=== PATIENT | male | born 1945 | race Caucasian/White ===

== ENCOUNTER 2023-01-08 13:02 | Emergency (ER) | payer OTHER, MEDICARE, SELFPAY ==
[2023-01-08 13:03] VITALS: BP 139/47; PULSE 75; RESP 18; TEMP 36.8; O2SAT 96; BMI 33.2
--- NOTE | 2023-01-08 13:15 | CT_ITS ---
STUDY: CT BRAIN WITHOUT CONTRAST REASON FOR EXAM: Male, 77 years old. Injury FALL. UPPER SCALP LAC RADIATION DOSAGE (If Supplied By Facility): CTDIvol = ( 44.99 ) mGy, DLP = ( 846.73 ) mGycm TECHNIQUE: Transaxial CT imaging of the brain was performed without administration of intravenous contrast material. Individualized dose optimization techniques were used for this CT. COMPARISON: None. FINDINGS: Small left scalp laceration with subcutaneous air and mild swelling over the apex of the skull/frontal bone. No visualized skull fracture or pneumocephalus or subdural hemorrhage or midline shift. Normal calvarium. There is mild cerebral atrophy with widening of the extra-axial spaces and ventricular dilatation. There are areas of decreased attenuation within the white matter tracts of the supratentorial brain, consistent with microvascular disease changes. Normal basal ganglia and thalami. Normal brainstem. Normal cerebellum. There is no intracranial hemorrhage. There are no findings of an acute ischemic infarction. Normal visualized paranasal sinuses. CT/Brain/Head without Contrast IMPRESSION: 1. Small left scalp laceration with subcutaneous air and mild swelling over the apex of the skull/frontal bone. No visualized skull fracture or pneumocephalus or subdural hemorrhage or midline shift 2. Chronic involutional changes of the brain. Electronically Signed: Gregorio Jacobs MD at 14:28 EST ,
[2023-01-08] MEDS: Lidocaine 1% (20 ml mdv) 20 ML Vial INFILT (13:18)
[2023-01-08] MEDS: Diphth,Pertuss(Acell),Tet Vac 0.5 ML Vial IM (13:22)
--- NOTE | 2023-01-08 13:37 | EX.ED.GENINJ ---
HPI History of Present Illness Chief Complaint: Laceration Informant: patient Narrative Narrative: 77-year-old male presenting to the emergency department chief complaint of head injury. Patient states he was walking towards the bathroom tripped over an electrical cord falling forward striking his head on brick/concrete that was around the sunken tub in the bathroom. No loss of consciousness. Unsure of last tetanus. He denies any back neck arm or leg symptoms. Not on blood thinners. Tetanus Immunization: Unknown PFSH PFSH Medical History Bone marrow depression Home Medications hydrocodone-acetaminophen 5-325mg 5mg-325mg 1 - 2 tab PO Q4H PRN PRN Pain ##20 11/17/14 [Rx Last Taken Unknown] Allergy/AdvReac Type Severity Reaction Status Date / Time meperidine HCl [From Demerol] Allergy Other Verified 01/08/23 13:08 Sulfa (Sulfonamide Allergy Rash Verified 01/08/23 13:08 Antibiotics) metformin AdvReac FATIGUE Verified 01/08/23 13:08 Social History Smoking Status: Former smoker ROS ROS ED Constitutional Constitutional ED: Denies chills or weight loss Eyes Eyes: Denies change in vision or diplopia ENT ENT ED: Denies ear pain, rhinorrhea or sore throat Cardiovascular Cardiovascular: Denies chest pain, orthopnea, palpitations or racing heartbeat Respiratory/Chest Respiratory/Chest: Denies cough, dyspnea or orthopnea Gastrointestinal Gastrointestinal: Denies abdominal pain, diarrhea, nausea or vomiting Genitourinary Genitourinary ED: Denies dysuria, hematuria or urinary frequency Musculoskeletal Musculoskeletal: Denies arthralgias or myalgias Integumentary Reports other Details: Scalp laceration ; Denies abscess or rash Neurologic Neurologic: Denies headache(s) or weakness Psychiatric Psychiatric: Denies anxiety, depression, suicidal ideation or suicidal thoughts Endocrine Endocrinology: Denies polydipsia, polyphagia or polyuria Allergic/Immunologic Allergic/Immunologic ED: Denies mouth swelling, tongue swelling or urticaria EXAM Physical Exam Const Vital Signs: 01/08/23 13:03 Temperature 98.3 F Temperature Source Temporal Pulse Rate 75 Respiratory Rate 18 Blood Pressure 139/47 H Blood Pressure Mean 77 Pulse Ox 96 Oxygen Delivery Method Room Air Positive well nourished and well developed General Appearance ED: well developed HEENT Reports normocephalic and moist mucous membranes HEENT Narrative: There is a 3 cm elongated W laceration to the left vertex of the scalp. No obvious bony depression. Mild venous oozing. Eyes PERRL and EOMs intact bilaterally Neck full ROM, no lymphadenopathy, supple and no JVD General: Negative for tenderness Resp normal respiratory effort and clear to auscultation bilaterally Cardio regular rate, regular rhythm and no murmurs GI normal to inspection, nondistended, normoactive bowel sounds and non-tender Palpation: soft Back/Spine no CVA tenderness and normal ROM Extremity normal to inspection General Extremety ED: Negative for edema General Extremity: Negative for edema Neuro oriented x3 and CN's II-XII intact bilaterally Sensorium / Orientation: alert Motor Exam: strength 5/5 throughout Psych mental status grossly normal Mood & Affect: Negative for depressed or tearful Skin no rashes or lesions noted and no wounds MDM MDM MDM Narrative Medical decision making narrative: Wound was locally anesthetized using 1% lidocaine. Washed with Shur-Clens and explored. No foreign bodies were noted. Wound was closed using 7 simple interrupted 4-0 Ethilon sutures. Good wound approximation. Patient tolerated procedure well. CT the brain was obtained. This was negative for fracture or for hemorrhage. Patient be discharged home. Good local wound care follow-up 7 days for suture removal Radiography Diagnostic Testing: Clinical Impression(s) from Imaging Studies Brain CT 01/08/23 13:15 IMPRESSION: 1. Small left scalp laceration with subcutaneous air and mild swelling over the apex of the skull/frontal bone. No visualized skull fracture or pneumocephalus or subdural hemorrhage or midline shift 2. Chronic involutional changes of the brain. Electronically Signed: Gregorio Jacobs MD at 14:28 EST , Discharge Plan Triage Chief Complaint: Laceration ED Provider: Bandar Israel Dx/Rx/DC Orders Clinical Impression: Head injury, Fall, Laceration of scalp Instructions: ED Laceration: All Closures Prescriptions: No Action hydrocodone-acetaminophen 1 TABLET tablet 1 - 2 tab PO Q4H PRN PRN (Reason: Pain) Qty: 20 0RF [facility] Provider] - 7 Days for suture removal Disposition Disposition: Home, Self Care
== END 2023-01-08 14:51 | disposition home or self-care (01) ==
PROVIDERS: Emergency Provider Emergency Medicine; Visit Provider Emergency Medicine
DX: S01.01XA Laceration without foreign body of scalp, initial encounter (principal); Z87.891 Personal history of nicotine dependence; S09.8XXA Other specified injuries of head, initial encounter; W01.198A Fall on same level from slipping, tripping and stumbling with subsequent striking against other object, initial encounter; Y93.01 Activity, walking, marching and hiking
CPT/HCPCS: 12002; 70450; 90471; 90715; 99284

== ENCOUNTER 2023-06-17 00:16 | Emergency (ER) | payer OTHER, SELFPAY ==
[2023-06-17] VITALS (15 sets, daily range): BP systolic 116–133; BP diastolic 50–67; PULSE 53–80; RESP 12–18; TEMP 36.3–37.1; O2SAT 96–100; BMI 34.0
[2023-06-17 01:17] LABS: Absolute Lymphocyte Count 1.08 X10^3/uL (0.83-4.51); Absolute Neutrophil Count 0.5 X10^3/uL (2.0-7.7); Basophil# 0.02 X10^3/uL; Basophil% 1.2 % (0-1); Eosinophil# 0.04 X10^3/uL; Eosinophils% 2.4 % (0-5); Hematocrit 13.2 % (40-54); Lymphocyte # 1.08 X10^3/ul (0.83-4.51); Lymphocyte % 64.7 % (19-41); Mean Corp Hgb Conc 33.3 g/dL (32-36); Mean Corpuscular Hgb 34.4 pg (27.0-32.0); Mean Corpuscular Volume 103.1 fL (80-94); Mean Platelet Vol. 12.9 fl (6.2-12.0); Monocyte# 0.03 X10^3/uL; Monocyte% 1.8 % (0-10); NRBC Flagged by Analyzer 0 % (0-5); Neutrophil # 0.47 X10^3/uL (2.7-7.7); Neutrophil % 28.1 % (47-70); POSITIVE COUNT YES; POSITIVE DIFFERENTIAL YES; POSITIVE MORPHOLOGY YES; Platelet Count 60 K/mm3 (150-450); Red Blood Count 1.28 M/mm3 (4.6-6.2); White Blood Count 1.7 K/mm3 (4.4-11.0)
[2023-06-17 01:26] LABS: Differential Indicated SCAN CRITERIA MET; Hemoglobin 4.4 g/dL (13.0-16.5)
--- NOTE | 2023-06-17 01:32 | EX.ED.DYSGE1 ---
HPI History of Present Illness Chief Complaint: Abn Labs Informant: patient and spouse/S.O. Narrative Narrative: Patient is a 78-year-old male with past medical history of hypertension hyperlipidemia and myelodysplastic syndrome. He states he has been receiving chemotherapy secondary to this. He reports he gets it Tuesday through Tuesday takes the weekend off and then who is Tuesday and Tuesday for total of 7 days. Then he waits approximately 28 days and then repeats the cycle. He states he has been having issues with his white blood cell count and his hemoglobin has been running low as well secondary to his treatments. He reports however he has never needed a transfusion. He states that there has been no hematuria or bleeding rectally and he denies any hematemesis. He states that he received a phone call reporting his hemoglobin was low and he needs to go to the hospital for transfusion and therefore presents at this time. Otherwise he states he feels at his baseline [facility] Medical History Allergic rhinitis Bone marrow depression Chronic anemia Former tobacco use HLD (hyperlipidemia) HTN (hypertension) MDS (myelodysplastic syndrome) Pancytopenia Home Medications acyclovir 400 mg tablet 400 mg PO BID 06/17/23 [History Last Taken Unknown] atorvastatin 40 mg tablet 40 mg PO QHS 06/17/23 [History Last Taken Unknown] azacitidine 100 mg solution for injection 125 mg subcut DAILY 06/17/23 [History Last Taken Unknown] benazepril 10 mg tablet 10 mg PO DAILY 06/17/23 [History Last Taken Unknown] cholecalciferol (vitamin D3) 25 mcg (1,000 unit) capsule 25 mcg PO DAILY 06/17/23 [History Last Taken Unknown] ciprofloxacin HCl 500 mg tablet (Cipro) 500 mg PO BID 06/17/23 [History Last Taken Unknown] cyanocobalamin (vitamin B-12) 1,000 mcg capsule 1,000 mcg PO DAILY 06/17/23 [History Last Taken Unknown] dexamethasone 4 mg tablet 8 mg PO DAILY 06/17/23 [History Last Taken Unknown] fluconazole 200 mg tablet 400 mg PO DAILY 06/17/23 [History Last Taken Unknown] fluticasone propionate 50 mcg/actuation nasal spray,suspension (Aller-Moose) 2 spray intranasal DAILY 06/17/23 [History Last Taken Unknown] hydrochlorothiazide 25 mg tablet 25 mg PO DAILY 06/17/23 [History Last Taken Unknown] hydroxyzine HCl 10 mg tablet 20 mg PO Q6H PRN itching 06/17/23 [History Last Taken Unknown] ketoconazole 2 % shampoo 1 applic topical Q14D 06/17/23 [History Last Taken Unknown] metoclopramide HCl 10 mg tablet (Reglan) 10 mg PO TID 06/17/23 [History Last Taken Unknown] tadalafil 20 mg tablet (Cialis) 20 mg PO DAILY PRN sexual activity 06/17/23 [History Last Taken Unknown] terazosin 5 mg capsule 5 mg PO QHS 06/17/23 [History Last Taken Unknown] thiamine HCl (vitamin B1) 100 mg tablet 100 mg PO DAILY 06/17/23 [History Last Taken Unknown] vitamin E 670 mg (1,000 unit) capsule 670 mg PO DAILY 06/17/23 [History Last Taken Unknown] vitamins A,C,K-hsny-ubpwch 2,148 mcg-113 mg-45 mg-17.4 mg tablet (Eye Multivitamin) 1 tab PO BID 06/17/23 [History Last Taken Unknown] Allergy/AdvReac Type Severity Reaction Status Date / Time meperidine HCl [From Demerol] Allergy Other Verified 06/17/23 00:17 Sulfa (Sulfonamide Allergy Rash Verified 06/17/23 00:17 Antibiotics) metformin AdvReac FATIGUE Verified 06/17/23 00:17 Family History (Updated 06/17/23 @ 01:[address] Hannah Garrett MD) Mother Breast cancer Other Heart disease Heart failure VTE (venous thromboembolism) Surgical History (Updated 06/17/23 @ 01:[address] Hannah Garrett MD) History of surgery on upper extremity History of total left knee replacement Social History (Updated 06/17/23 @ 01:[address] Hannah Garrett MD) household members: spouse Smoking Status: Former smoker alcohol intake: current alcohol intake frequency: holidays/special occasions only substance use type: does not use ROS ROS ED Constitutional Constitutional ED: Denies chills or fever(s) Eyes Eyes: Denies change in vision ENT ENT ED: Denies sore throat Cardiovascular Cardiovascular: Denies chest pain or palpitations Respiratory/Chest Respiratory/Chest: Denies cough or dyspnea Gastrointestinal Gastrointestinal: Denies abdominal pain, diarrhea, melena, nausea or vomiting Genitourinary Genitourinary ED: Denies dysuria or hematuria Musculoskeletal Musculoskeletal: Denies myalgias Integumentary Denies rash Neurologic Neurologic: Denies headache(s) or weakness Hematologic/Lymphatic Hematologic/Lymphatic: Denies easy bleeding or easy bruising EXAM Physical Exam Const Vital Signs: 06/17/23 00:17 06/17/23 00:17 06/17/23 02:17 Temperature 97.4 F L Temperature Source Temporal Pulse Rate 80 60 Respiratory Rate 17 16 Respiratory Effort Normal Non-Labored Respiratory Pattern Normal Blood Pressure 123/57 H 116/54 L Blood Pressure Mean 79 74 Blood Pressure Source Blood Pressure Position Blood Pressure Location Pulse Ox 98 96 Oxygen Delivery Method Room Air Room Air 06/17/23 04:01 06/17/23 04:00 06/17/23 04:16 Temperature 97.7 F L 97.7 F L Temperature Source Temporal Temporal Pulse Rate 66 64 60 Respiratory Rate 16 14 16 Respiratory Effort Respiratory Pattern Blood Pressure 117/57 L 117/57 L 126/54 H Blood Pressure Mean 77 77 78 Blood Pressure Source Monitor Monitor Blood Pressure Position Semi-Fowlers Supine Blood Pressure Location Right Arm Right Arm Pulse Ox 98 97 99 Oxygen Delivery Method Room Air Room Air Room Air 06/17/23 05:16 06/17/23 05:57 06/17/23 06:00 Temperature 97.7 F L 97.9 F Temperature Source Temporal Temporal Pulse Rate 53 L 57 L 55 L Respiratory Rate 18 16 16 Respiratory Effort Respiratory Pattern Blood Pressure 121/54 H 127/62 H 127/50 H Blood Pressure Mean 76 83 75 Blood Pressure Source Monitor Monitor Blood Pressure Position Semi-Fowlers Blood Pressure Location Right Arm Right Arm Pulse Ox 98 99 99 Oxygen Delivery Method Room Air Room Air Room Air Positive well nourished and well developed General Appearance ED: well developed and pallor HEENT Reports moist mucous membranes HEENT Narrative: No tongue or lip swelling no oral lesions no airway edema or compromise No active bleeding or dried blood noted in the posterior pharynx Eyes PERRL and EOMs intact bilaterally General Eye ED: Yes pale conjunctiva; Negative for scleral icterus Neck supple Resp normal respiratory effort and clear to auscultation bilaterally Cardio regular rate and regular rhythm GI normal to inspection, nondistended, normoactive bowel sounds, non-tender, non-distended and no masses GI Narrative: No voluntary guarding or rigidity or pulsatile mass Auscultation: normoactive bowel sounds Palpation: soft Extremity normal to inspection Neuro oriented x3, CN's II-XII intact bilaterally and no sensory deficits noted Sensorium / Orientation: alert Motor Exam: strength 5/5 throughout Psych mental status grossly normal Skin no rashes or lesions noted, No no wounds and No skin turgor normal Skin Narrative: Capillary refills less than 3 seconds General Skin Exam: pallor; Negative for jaundice MDM MDM MDM Narrative Medical decision making narrative: Patient presented to the ER with stable vitals. He denied any potential cause of acute blood loss anemia such as hematemesis hematochezia or hemoptysis. As he undergoes chemotherapy and has myelodysplastic syndrome chronic anemia is baseline for him. However he states it is never down to 5.2. There is possibly this was lab error so repeat blood work was obtained to check for this. Repeat labs do confirm anemia with hemoglobin of 4.4. As he is hemodynamically stable and he reports no areas of active bleeding I do not feel there is need for intervention other than blood transfusion. The patient was given 2 units of irradiated and leukoreduced blood because of his chemotherapy and MDS status. The case was discussed with his oncologist at [facility] Dr. Tiago Mcginnis. The c consultant agrees as patient is hemodynamically stable without reported areas of acute blood loss that after 2 units are given a CBC can be redrawn and as long as his hemoglobin has improved to near baseline and vitals remained stable he would feel safe with him being discharged and following up on an outpatient basis. This plan of care was discussed with the patient who is agreeable to it and therefore blood will be ordered and once tonight's are completed H&H will be rechecked. As long as it is approaching his baseline of 7, he will be discharged home History & Record Review Discussion w/independent historian: Patient and Significant other Lab Data Attestation: I reviewed the patient's lab results. Labs: Laboratory Results - last 24 hr 06/17/23 01:05 WBC 1.7 L RBC 1.28 L Hgb 4.4 L* Hct 13.2 L MCV 103.1 H MCH 34.4 H MCHC 33.3 RDW Std Deviation TNP RDW Coeff of Philip TNP Plt Count 60 L MPV 12.9 H Immature Gran % (Auto) 1.800 H Neut % (Auto) 28.1 L Lymph % (Auto) 64.7 H [place] % (Auto) 1.8 Eos % (Auto) 2.4 Baso % (Auto) 1.2 H Absolute Neuts (auto) 0.5 L Absolute Lymphs (auto) 1.08 Nucleated RBC % 0 Differential Comment SCANNED Diff Path Review May foll Atypical Lymphocytes 1+ Platelet Estimate MOD DEC Anisocytosis 3+ Microcytosis 2+ Blood Type A POSITIVE Antibody Screen NEGATIVE Crossmatch See Detail Discharge Plan Triage Chief Complaint: Abn Labs ED Provider: León Hussein Dx/Rx/DC Orders Clinical Impression: Acute anemia, Myelodysplastic syndrome, Thrombocytopenia, Hypertension Instructions: Anemia, Anemia During Cancer Prescriptions: No Action acyclovir 400 mg tablet 400 mg PO BID atorvastatin 40 mg tablet 40 mg PO QHS azacitidine 100 mg recon soln 125 mg subcut DAILY benazepril 10 mg tablet 10 mg PO DAILY ciprofloxacin HCl [Cipro] 500 mg tablet 500 mg PO BID cholecalciferol (vitamin D3) 25 mcg (1,000 unit) capsule 25 mcg PO DAILY cyanocobalamin (vitamin B-12) 1,000 mcg capsule 1,000 mcg PO DAILY dexamethasone 4 mg tablet 8 mg PO DAILY fluconazole 200 mg tablet 400 mg PO DAILY fluticasone propionate [Aller-Moose] 50 mcg/actuation spray,suspension 2 spray intranasal DAILY Rx Instructions: administer into each nostril hydrochlorothiazide 25 mg tablet 25 mg PO DAILY hydroxyzine HCl 10 mg tablet 20 mg PO Q6H PRN (Reason: itching) ketoconazole 2 % shampoo 1 applic topical Q14D metoclopramide HCl [Reglan] 10 mg tablet 10 mg PO TID Eye Multivitamin 2,148 mcg-113 mg-45 mg-17.4mg tablet 1 tab PO BID Rx Instructions: administer with AM and PM meals tadalafil [Cialis] 20 mg tablet 20 mg PO DAILY PRN (Reason: sexual activity) Rx Instructions: administer approximately 30min before sexual activity; do not use more than 1 dose per 24hrs terazosin 5 mg capsule 5 mg PO QHS thiamine HCl (vitamin B1) 100 mg tablet 100 mg PO DAILY vitamin E 670 mg (1,000 unit) capsule 670 mg PO DAILY [facility]errals[facility] [Primary Care Provider] - Activity Restrictions/Additional Instructions: Please 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
[2023-06-17 02:35] LABS: Atypical Lymphocyte 1+ %; Differential Comment SCANNED; Platelet Estimate MOD DEC (ADEQ)
[2023-06-17 02:36] LABS: Anisocytosis 3+; Microcytosis 2+
[2023-06-17 11:59] LABS: Hematocrit 19.1 % (40-54); Hemoglobin 6.4 g/dL (13.0-16.5)
[2023-06-17 14:34] LABS: Pathologist Review Reviewed
== END 2023-06-17 12:20 | disposition home or self-care (01) ==
PROVIDERS: Emergency Medicine; Emergency Provider Emergency Medicine; Visit Provider Emergency Medicine
DX: D46.9 Myelodysplastic syndrome, unspecified (principal); I10 Essential (primary) hypertension; D69.6 Thrombocytopenia, unspecified; Z87.891 Personal history of nicotine dependence; E78.5 Hyperlipidemia, unspecified; Z92.21 Personal history of antineoplastic chemotherapy; Z79.899 Other long term (current) drug therapy
CPT/HCPCS: 85014; 85018; 85025; 86850; 86900; 86901; 86920; 99282; J7040; P9040; A4216

== ENCOUNTER 2023-10-25 09:58 | Inpatient (IN) | payer OTHER, SELFPAY ==
[2023-10-25] VITALS (11 sets, daily range): BP systolic 93–132; BP diastolic 52–78; PULSE 64–92; RESP 14–20; TEMP 36.4–37.3; O2SAT 92–99
--- NOTE | 2023-10-25 10:11 | EKG12_ITS ---
Test Reason : SOB Blood Pressure : / mmHG Vent. Rate : 086 BPM Atrial Rate : 086 BPM P-R Int : 156 ms QRS Dur : 108 ms QT Int : 384 ms P-R-T Axes : 032 -41 045 degrees QTc Int : 459 ms Sinus rhythm with frequent Premature ventricular complexes Left axis deviation Possible Anterolateral infarct , age undetermined Abnormal ECG Confirmed by RAMEZ JAMA, NIA ([id number]), make up editor YENNI VILLASEÑOR ([id number]) on 10/26/2023 1:25:13 PM Referred By: Confirmed By:NIA MYRICK MD
--- NOTE | 2023-10-25 10:11 | RAD_ITS ---
STUDY: X-RAY CHEST REASON FOR EXAM: Male, 78 years old. weakness TECHNIQUE: Single AP portable view of the chest. COMPARISON: None. FINDINGS: Chronic interstitial changes in both lung lopez with lingular opacification suggesting atelectasis or early infiltrate. There is no demonstrated pleural abnormality. Normal size heart. Normal mediastinum and eloina. Normal visualized pulmonary arteries. Normal visualized aortic arch and descending thoracic aorta. Normal visualized thoracic spine. Normal visualized ribs, clavicles, and shoulders. There is no demonstrated abnormality of the visualized soft tissue structures of the upper abdomen. RAD/Chest 1 View (Portable) IMPRESSION: Chronic interstitial changes with superimposed lingular opacification suggesting atelectasis or early infiltrate. Follow-up recommended to assure resolution Electronically Signed: Mak Banks MD at 11:22 EDT ,
--- NOTE | 2023-10-25 10:11 | RAD_ITS ---
STUDY: X-RAY - PELVIS AND LEFT HIP REASON FOR EXAM: Male, 78 years old. Pain. TECHNIQUE: 4 views of the pelvis and left hip. COMPARISON: None. FINDINGS: There is a non-specific bowel gas pattern. Normal visualized soft tissue structures. Normal bilateral iliac wings, sacroiliac joints and visualized sacrum. Normal bilateral superior and inferior pubic rami. Normal pubic symphysis. Normal bilateral ischial tuberosities. Intact visualized femoral head. There is mild osteoarthritic spur formation of the left acetabular rim. There is moderate articular joint space narrowing of the left hip. There is no demonstrated acute fracture. 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 No demonstrated acute fracture. Electronically Signed: Wes Pineda MD at 11:29 EDT ,
--- NOTE | 2023-10-25 10:15 | EX.ED.DYSGE1 ---
HPI History of Present Illness Chief Complaint: Weakness Narrative Narrative: Patient is a 70-year-old male with past medical history of hyperlipidemia, hypertension, myelodysplastic syndrome undergoing chemotherapy, chronic anemia, pancytopenia who presented to the emergency department chief complaint of generalized weakness. According the patient the past 3 days he has had increasing weakness having difficulty with ambulating. He states that today he was so weak that he could not get up out of bed prompting his to call EMS to have brought here further evaluation management. He states that has not been eating and drinking much over the past few days either. Patient denies any recent sick contacts. Patient states that today he went to stand up to get off the toilet and slid down in between the toilet. He states it did not hit his head did not pass out lose consciousness. He states that his legs were so weak that he had to sit down. [facility] Medical History Former tobacco use Chronic anemia Pancytopenia Allergic rhinitis HLD (hyperlipidemia) HTN (hypertension) MDS (myelodysplastic syndrome) Bone marrow depression Home Medications ?Medication ?Instructions ?Recorded ?Last Taken ?Type acyclovir 400 mg tablet 400 mg PO BID 06/17/23 10/23/23 History atorvastatin 40 mg tablet 40 mg PO QHS 06/17/23 10/23/23 History azacitidine 100 mg solution for 125 mg subcut DAILY 06/17/23 10/23/23 History injection benazepril 10 mg tablet 10 mg PO DAILY 06/17/23 10/23/23 History cholecalciferol (vitamin D3) 25 25 mcg PO DAILY 06/17/23 10/23/23 History mcg (1,000 unit) capsule ciprofloxacin HCl 500 mg tablet 500 mg PO BID 06/17/23 10/23/23 History (Cipro) cyanocobalamin (vitamin B-12) 1,000 mcg PO DAILY 06/17/23 10/23/23 History 1,000 mcg capsule dexamethasone 4 mg tablet 8 mg PO DAILY 06/17/23 10/23/23 History fluconazole 200 mg tablet 400 mg PO DAILY 06/17/23 10/23/23 History fluticasone propionate 50 2 spray intranasal DAILY 06/17/23 10/23/23 History mcg/actuation nasal spray,suspension (Aller-Moose) hydrochlorothiazide 25 mg tablet 25 mg PO DAILY 06/17/23 10/23/23 History hydroxyzine HCl 10 mg tablet 20 mg PO Q6H PRN itching 06/17/23 10/23/23 History ketoconazole 2 % shampoo 1 applic topical Q14D 06/17/23 10/23/23 History metoclopramide HCl 10 mg tablet 10 mg PO TID 06/17/23 10/23/23 History (Reglan) terazosin 5 mg capsule 5 mg PO QHS 06/17/23 10/23/23 History thiamine HCl (vitamin B1) 100 mg 100 mg PO DAILY 06/17/23 10/23/23 History tablet vitamin E 670 mg (1,000 unit) 670 mg PO DAILY 06/17/23 10/23/23 History capsule vitamins A,C,Y-kbfl-ktyyvm 2,148 1 tab PO BID 06/17/23 10/23/23 History mcg-113 mg-45 mg-17.4 mg tablet (Eye Multivitamin) albuterol sulfate 90 mcg/actuation 2 inh inhalation Q4H PRN shortness 10/25/23 Unknown History aerosol inhaler of breath or wheezing clobetasol 0.05 % topical cream 1 applic topical BID 10/25/23 10/23/23 History desonide 0.05 % topical cream 1 applic topical Q12H 10/25/23 10/23/23 History diclofenac sodium 75 mg 75 mg PO BID 10/25/23 10/23/23 History tablet,delayed release ondansetron 8 mg disintegrating 8 mg PO Q8H 10/25/23 10/23/23 History tablet sennosides 8.6 mg-docusate sodium 1 tab-cap PO BID 10/25/23 10/23/23 History 50 mg tablet (Colace 2-In-1) Allergy/AdvReac Type Severity Reaction Status Date / Time meperidine HCl (From Demerol) Allergy Other Verified 10/25/23 09:59 Sulfa (Sulfonamide Allergy Rash Verified 10/25/23 09:59 Antibiotics) metformin AdvReac FATIGUE Verified 10/25/23 09:59 Family History Mother Breast cancer Other Heart disease Heart failure VTE (venous thromboembolism) Surgical History History of surgery on upper extremity History of total left knee replacement Social History household members: spouse Smoking Status: Former smoker alcohol intake: current alcohol intake frequency: holidays/special occasions only substance use type: does not use ROS ROS ED ROS Narrative Constitutional: Denies any fevers, chills, headaches, lightness, dizziness Eyes: Denies changes double vision blurry vision Cardiovascular: Denies chest pain or palpitations Respiratory: Denies coughing wheezing shortness of breath Abdomen: Denies abdominal pain nausea vomit diarrhea : Denies any painful urination, hematuria, polyuria Neurological: Complains of generalized weakness as noted above denies numbness or tingling Musculoskeletal: Denies any back pain Skin: Denies rashes lesions EXAM Physical Exam Narrative Exam Narrative: General: Patient lying in bed rest comfortably did not appear to be in acute distress Head: Atraumatic, normocephalic Eyes: PERRL bilaterally, EOMI bilateral, no conjunctival injection noted Neck: Soft, supple, trachea midline Cardiovascular: Regular rate and rhythm no murmurs gallops rubs noted Respiratory: Clear to auscultation bilaterally no rales rhonchi wheeze noted Abdomen: Soft, nondistended, nontender to palpation, bowel sounds present x 4 Musculoskeletal: All joints taken through full range of motion and bony prominences palpated no pain elicited Extremities: +3/5 strength noted in the bilateral upper and lower extremities, no pedal edema on exam Neurological: Patient following commands knew that he was at [facility] year is 2023 sensation grossly intact in the bilateral upper and lower extremities, no saddle anesthesia noted. NIH is 0 GCS 15 Skin: Warm, dry, intact Const Vital Signs: 10/25/23 09:59 10/25/23 10:02 10/25/23 10:05 Temperature 98.1 F 98.1 F Temperature Source Oral Oral Pulse Rate 90 92 Respiratory Rate 18 18 Respiratory Effort Normal Respiratory Pattern Normal Blood Pressure 93/66 93/66 Blood Pressure Mean 75 75 Pulse Ox 95 92 Oxygen Delivery Method Room Air Room Air 10/25/23 11:02 10/25/23 12:00 10/25/23 13:00 Temperature 98.6 F 98.4 F 97.8 F Temperature Source Temporal Temporal Temporal Pulse Rate 64 87 78 Respiratory Rate 18 16 16 Respiratory Effort Respiratory Pattern Blood Pressure 124/76 H 114/64 108/78 Blood Pressure Mean 92 80 88 Pulse Ox 94 98 98 Oxygen Delivery Method Room Air Room Air Room Air MDM MDM MDM Narrative Medical decision making narrative: Patient is a 70-year-old male who presented to the emerged part with chief complaint of generalized weakness. Patient will have a workup performed here on the differential diagnose includes but not limited to anemia, electrolyte abnormality, UTI, pneumonia, dehydration. Once workup is obtained reviewed he will be reevaluated. Patient CBC reviewed showed a white blood count of 8.5, hemoglobin stable at 7.1 is improved from previous blood draws, platelet count was noted to be normal at 189, MCV of 97.4. Patient does have chronic anemia. Patient's sodium was noted be low indicating hyponatremia at 129, potassium 4.2, creatinine was 1.37 and the previous 1 we have here in the computer system was 1.13 indicating acute kidney injury. Patient's AST and ALT were normal at 6751 respectively. Patient lipase normal at 19, EKG reviewed showed sinus rhythm with PVCs noted. At this point time do believe the patient will warrant admission to the hospital for his generalized weakness, hyponatremia, LEIDY. Patient case was discussed with hospitalist Dr. Whaley who will accept patient for admission. Patient was notified with all question concerns answered. Lab Data Labs: Laboratory Results - last 24 hr 10/25/23 10:31 WBC 8.5 RBC 2.27 L Hgb 7.1 L Hct 22.1 L MCV 97.4 H MCH 31.3 MCHC 32.1 RDW Std Deviation 79.3 H RDW Coeff of Philip 23.9 H Plt Count 189 MPV 12.2 H Neut % (Auto) Not Reportable Absolute Neuts (auto) 7.3 Absolute Lymphs (auto) 0.80 L Total Counted 100 Neutrophils % (Manual) 79 H Band Neutrophils % 7 H Lymphocytes % (Manual) 9 L Monocytes % (Manual) 5 Diff Path Review May foll Platelet Estimate ADEQUATE Anisocytosis 1+ Sodium 129 L Potassium 4.2 Chloride 98 Carbon Dioxide 24.0 Anion Gap 7 BUN 51 H Creatinine 1.37 H Estim Creat Clear Calc 51.44 Est GFR (MDRD) Af Amer 65 Est GFR (MDRD) Non-Af 53 L BUN/Creatinine Ratio 37.2 H Glucose 118 H Lactic Acid 1.8 Calcium 9.1 Total Bilirubin 0.80 AST 67 H ALT 51 Alkaline Phosphatase 76 Troponin I High Sens 63 Total Protein 5.7 L Albumin 2.8 L Globulin 2.9 Albumin/Globulin Ratio 1.0 Lipase 19 Radiography Diagnostic Testing: Clinical Impression(s) from Imaging Studies Chest X-Ray 10/25/23 10:11 IMPRESSION: Chronic interstitial changes with superimposed lingular opacification suggesting atelectasis or early infiltrate. Follow-up recommended to assure resolution Electronically Signed: Mak Banks MD at 11:22 EDT , Hip/Pelvis X-Ray 10/25/23 10:11 IMPRESSION: Moderate degenerative arthrosis of the left hip joint. No demonstrated acute fracture. Electronically Signed: Wes Pineda MD at 11:29 EDT , Discharge Plan Triage Chief Complaint: Weakness ED Provider: Adrian Tejada Dx/Rx/DC Orders Clinical Impression: Acute kidney injury, Acute hyponatremia, Generalized weakness, Dehydration Prescriptions: No Action acyclovir 400 mg tablet 400 mg PO BID atorvastatin 40 mg tablet 40 mg PO QHS azacitidine 100 mg recon soln 125 mg subcut DAILY benazepril 10 mg tablet 10 mg PO DAILY ciprofloxacin HCl [Cipro] 500 mg tablet 500 mg PO BID cholecalciferol (vitamin D3) 25 mcg (1,000 unit) capsule 25 mcg PO DAILY cyanocobalamin (vitamin B-12) 1,000 mcg capsule 1,000 mcg PO DAILY dexamethasone 4 mg tablet 8 mg PO DAILY fluconazole 200 mg tablet 400 mg PO DAILY fluticasone propionate [Aller-Moose] 50 mcg/actuation spray,suspension 2 spray intranasal DAILY Rx Instructions: administer into each nostril hydrochlorothiazide 25 mg tablet 25 mg PO DAILY hydroxyzine HCl 10 mg tablet 20 mg PO Q6H PRN (Reason: itching) ketoconazole 2 % shampoo 1 applic topical Q14D metoclopramide HCl [Reglan] 10 mg tablet 10 mg PO TID Eye Multivitamin 2,148 mcg-113 mg-45 mg-17.4mg tablet 1 tab PO BID Rx Instructions: administer with AM and PM meals terazosin 5 mg capsule 5 mg PO QHS thiamine HCl (vitamin B1) 100 mg tablet 100 mg PO DAILY vitamin E 670 mg (1,000 unit) capsule 670 mg PO DAILY albuterol sulfate 90 mcg/actuation HFA aerosol inhaler 2 inh inhalation Q4H PRN (Reason: shortness of breath or wheezing) clobetasol 0.05 % cream 1 applic topical BID desonide 0.05 % cream 1 applic topical Q12H diclofenac sodium 75 mg tablet,delayed release (DR/EC) 75 mg PO BID sennosides-docusate sodium [Colace 2-In-1] 8.6-50 mg tablet 1 tab-cap PO BID ondansetron 8 mg tablet,disintegrating 8 mg PO Q8H Rx Instructions: 1st dose 1-2 hr before radiation [facility]errals[facility] [Primary Care Provider] - Print Language: Barbadian
[2023-10-25] MEDS: 0.9% Normal Saline (1000mL) 1,000 ML 999 ML IV ×2 (10:37→11:36)
[2023-10-25 10:44] LABS: Hematocrit 22.1 % (40-54); Hemoglobin 7.1 g/dL (13.0-16.5); Mean Corp Hgb Conc 32.1 g/dL (32-36); Mean Corpuscular Hgb 31.3 pg (27.0-32.0); Mean Corpuscular Volume 97.4 fL (80-94); Mean Platelet Vol. 12.2 fl (6.2-12.0); POSITIVE COUNT YES; POSITIVE MORPHOLOGY YES; Platelet Count 189 K/mm3 (150-450); RBC Distribution Width CV 23.9 % (11.6-14.6); RBC Distribution Width SD 79.3 fl (35.1-43.9); Red Blood Count 2.27 M/mm3 (4.6-6.2); White Blood Count 8.5 K/mm3 (4.4-11.0)
[2023-10-25 10:45] LABS: Differential Indicated MANUAL DIFF
[2023-10-25 11:09] LABS: AST(SGOT) 67 U/L (15-37); Alanine Aminotransfer ALT/SGPT 51 U/L (16-61); Albumin, Serum 2.8 g/dL (3.2-5.0); Alkaline Phosphatase 76 U/L (45-117); Anion Gap 7 (5-15); BUN 51 mg/dL (7-18); BUN/Creat Ratio 37.2 RATIO (10-20); Calcium,Total 9.1 mg/dL (8.5-10.1); Chloride 98 mmol/L (98-107); Creatinine, Serum 1.37 mg/dL (0.70-1.30); EST Glomerular Filtration Rate 53 mL/min (>60); Est Glom Filt Rate - Afr Amer 65 mL/min (>60); Estimated Creatinine Clearance 51.44 ml/min; Globulin 2.9 g/dL (2.2-4.2); Glucose 118 mg/dL (74-106); Lipase 19 U/L (13-75); Potassium 4.2 mmol/L (3.5-5.1); Protein, Total 5.7 g/dL (6.4-8.2); Sodium Level 129 mmol/L (136-145); Troponin-I HS 63 pg/mL (3.0-78.0)
[2023-10-25 11:10] LABS: Lactic Acid 1.8 mmol/L (0.4-1.9)
[2023-10-25 11:44] LABS: Anisocytosis 1+; Lymphocyte 9 % (19-41); Monocyte 5 % (0-10); Neutrophil-Band 7 % (0-5); Neutrophil-Segmented 79 % (47-70); Platelet Estimate ADEQUATE (ADEQ); Total Cells Counted 100 (MANUAL DIFF)
[2023-10-25 11:45] LABS: Absolute Neutrophil Count 7.3 X10^3/uL (2.0-7.7)
--- NOTE | 2023-10-25 13:06 | NURSING ---
CALLED ELIZABETH GARCIA, IF IN THE BEST INTEREST OF THE PATIENT ADMIT HIM. 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
--- NOTE | 2023-10-25 13:08 | ED.RN ---
fluid orders were incorrect according to dr. albert. he wants pt to have a total of 2500mls. initial bag hung, followed by a 2nd. will hang a 500ml. once others are complete
[2023-10-25 15:21] LABS: Troponin-I HS 63 pg/mL (3.0-78.0)
[2023-10-25] MEDS: 0.9% Normal Saline (1000mL) 1,000 ML 75 ML IV (16:50)
[2023-10-25] MEDS: Metoclopramide 10 MG Tablet PO ×2 (16:50→21:13)
--- NOTE | 2023-10-25 19:58 | HP.PCM.HOS_ITS ---
HPI - General General Date of Admission: 10/25/23 HPI Narrative ANIBAL MELTON, is a 78 M who presents to the hospital feeling unwell for the last 3 days. He has been feeling increasingly weak and has had some falls over the last few days. Today he felt that his legs were very heavy though he denies any numbness or tingling in them. No fevers or chills but he is on prophylactic antifungal, antiviral, antibacterial treatment because he is on chemotherapy where he will receive dosing 5 days a week and then have 21 days off. During that time he receives dexamethasone during his chemo weeks. Will obtain a UA as 1 was not done in the ER, blood culture is pending but no signs of sepsis or overt bacterial infection. Will also order a viral panel as 1 was not done in the ER either. According to his this is an acute onset of his debility and weakness as he is normally very active. He was also noted to have some hyponatremia in the ER at 129 with a creatinine of 1.37, this may be his new baseline as his prior creatinine was from 2014 at 1.13. [facility] Medical History Former tobacco use Chronic anemia Pancytopenia Allergic rhinitis HLD (hyperlipidemia) HTN (hypertension) MDS (myelodysplastic syndrome) Bone marrow depression Home Medications ?Medication ?Instructions ?Recorded ?Last Taken ?Type acyclovir 400 mg tablet 400 mg PO BID 06/17/23 10/23/23 History atorvastatin 40 mg tablet 40 mg PO QHS 06/17/23 10/23/23 History azacitidine 100 mg solution for 125 mg subcut DAILY 06/17/23 10/23/23 History injection benazepril 10 mg tablet 10 mg PO DAILY 06/17/23 10/23/23 History cholecalciferol (vitamin D3) 25 25 mcg PO DAILY 06/17/23 10/23/23 History mcg (1,000 unit) capsule ciprofloxacin HCl 500 mg tablet 500 mg PO BID 06/17/23 10/23/23 History (Cipro) cyanocobalamin (vitamin B-12) 1,000 mcg PO DAILY 06/17/23 10/23/23 History 1,000 mcg capsule dexamethasone 4 mg tablet 8 mg PO DAILY 06/17/23 10/23/23 History fluconazole 200 mg tablet 400 mg PO DAILY 06/17/23 10/23/23 History fluticasone propionate 50 2 spray intranasal DAILY 06/17/23 10/23/23 History mcg/actuation nasal spray,suspension (Aller-Moose) hydrochlorothiazide 25 mg tablet 25 mg PO DAILY 06/17/23 10/23/23 History hydroxyzine HCl 10 mg tablet 20 mg PO Q6H PRN itching 06/17/23 10/23/23 History ketoconazole 2 % shampoo 1 applic topical Q14D 06/17/23 10/23/23 History metoclopramide HCl 10 mg tablet 10 mg PO TID 06/17/23 10/23/23 History (Reglan) terazosin 5 mg capsule 5 mg PO QHS 06/17/23 10/23/23 History thiamine HCl (vitamin B1) 100 mg 100 mg PO DAILY 06/17/23 10/23/23 History tablet vitamin E 670 mg (1,000 unit) 670 mg PO DAILY 06/17/23 10/23/23 History capsule vitamins A,C,L-wsob-uzuued 2,148 1 tab PO BID 06/17/23 10/23/23 History mcg-113 mg-45 mg-17.4 mg tablet (Eye Multivitamin) albuterol sulfate 90 mcg/actuation 2 inh inhalation Q4H PRN shortness 10/25/23 Unknown History aerosol inhaler of breath or wheezing clobetasol 0.05 % topical cream 1 applic topical BID 10/25/23 10/23/23 History desonide 0.05 % topical cream 1 applic topical Q12H 10/25/23 10/23/23 History diclofenac sodium 75 mg 75 mg PO BID 10/25/23 10/23/23 History tablet,delayed release ondansetron 8 mg disintegrating 8 mg PO Q8H 10/25/23 10/23/23 History tablet sennosides 8.6 mg-docusate sodium 1 tab-cap PO BID 10/25/23 10/23/23 History 50 mg tablet (Colace 2-In-1) Allergy/AdvReac Type Severity Reaction Status Date / Time meperidine HCl (From Demerol) Allergy Other Verified 10/25/23 09:59 Sulfa (Sulfonamide Allergy Rash Verified 10/25/23 09:59 Antibiotics) metformin AdvReac FATIGUE Verified 10/25/23 09:59 Family History Mother Breast cancer Other Heart disease Heart failure VTE (venous thromboembolism) Surgical History History of surgery on upper extremity History of total left knee replacement Social History household members: spouse Smoking Status: Former smoker alcohol intake: current alcohol intake frequency: holidays/special occasions only substance use type: does not use ROS Constitutional Constitutional: Reports malaise and weakness; Denies chills, fatigue or fever(s) Eyes Eyes: Denies blurry vision ENT HEENT: Denies headache(s) or nasal discharge Cardiovascular Cardiovascular: Denies chest pain, dyspnea on exertion or syncope Respiratory/Chest Respiratory/Chest: Denies cough, shortness of breath at rest or shortness of breath with exertion Gastrointestinal Gastrointestinal: Denies constipation, diarrhea, nausea or vomiting Genitourinary Genitourinary: Reports dysuria Neurologic Neurologic: Denies focal weakness, numbness or tremor(s) Psychiatric Psychiatric: Denies anxiety or depression Vital Signs Vital Signs Vital Signs: 10/25/23 09:59 10/25/23 10:02 10/25/23 10:05 Temperature 98.1 F 98.1 F Temperature Source Oral Oral Pulse Rate 90 92 Respiratory Rate 18 18 Respiratory Effort Normal Respiratory Pattern Normal Blood Pressure 93/66 93/66 Blood Pressure Mean 75 75 Blood Pressure Source Blood Pressure Position Blood Pressure Location Pulse Ox 95 92 Oxygen Delivery Method Room Air Room Air 10/25/23 11:02 10/25/23 12:00 10/25/23 13:00 Temperature 98.6 F 98.4 F 97.8 F Temperature Source Temporal Temporal Temporal Pulse Rate 64 87 78 Respiratory Rate 18 16 16 Respiratory Effort Respiratory Pattern Blood Pressure 124/76 H 114/64 108/78 Blood Pressure Mean 92 80 88 Blood Pressure Source Blood Pressure Position Blood Pressure Location Pulse Ox 94 98 98 Oxygen Delivery Method Room Air Room Air Room Air 10/25/23 13:45 10/25/23 13:56 10/25/23 14:00 Temperature 97.6 F L 98.9 F Temperature Source Temporal Pulse Rate 86 76 78 Respiratory Rate 20 H 16 16 Respiratory Effort Respiratory Pattern Blood Pressure 132/61 H 116/64 105/76 Blood Pressure Mean 84 81 85 Blood Pressure Source Blood Pressure Position Blood Pressure Location Pulse Ox 95 99 95 Oxygen Delivery Method Room Air Room Air 10/25/23 15:00 10/25/23 15:00 10/25/23 16:35 Temperature 97.8 F 99.2 F H Temperature Source Temporal Oral Pulse Rate 77 77 80 Respiratory Rate 14 14 18 Respiratory Effort Respiratory Pattern Blood Pressure 113/53 L 113/53 L 114/63 Blood Pressure Mean 73 73 80 Blood Pressure Source Monitor Blood Pressure Position Semi-Fowlers Blood Pressure Location Left Arm Pulse Ox 94 94 99 Oxygen Delivery Method Room Air Room Air Room Air 10/25/23 16:38 Temperature Temperature Source Pulse Rate Respiratory Rate Respiratory Effort Normal Respiratory Pattern Blood Pressure Blood Pressure Mean Blood Pressure Source Blood Pressure Position Blood Pressure Location Pulse Ox Oxygen Delivery Method Room Air Weight Weight: 209 lb 10.554 oz Body Mass Index (BMI) 30.0 Physical Exam Narrative General: Alert, Oriented x3, Cooperative, No apparent distress, appears fatigued HEENT: Atraumatic, PERRLA, EOMI, Normocephalic Oral: Moist Mucosa Neck: Supple, No JVD Lungs: Diminished, Normal air movement, No rhonchi, No wheeze, No rales Cardiovascular: Regular rate, Regular Rhythm, Normal S1, Normal S2, No murmurs Abdomen: Soft, Non Tender, Non-Distended, No Hepato-splenomegaly Extremities: No edema, Capillary Refill Less than 3 Seconds Skin: No rashes, No breakdown Musculoskeletal: No Tenderness to Palpation of Joints or Extremities Neurological: No focal neurological deficits, Motor Exam 5/5 strength throughout, Sensory exam intact to light touch and pain Psych/Mental Status: Normal Affect, Appropriate Results Lab / Micro Data 10/25/23 10:31 10/25/23 10:31 Labs: Laboratory Results - last 24 hr 10/25/23 10:31: WBC 8.5, RBC 2.27 L, Hgb 7.1 L, Hct 22.1 L, MCV 97.4 H, MCH 31.3, MCHC 32.1, RDW Std Deviation 79.3 H, RDW Coeff of Philip 23.9 H, Plt Count 189, MPV 12.2 H, Neut % (Auto) Not Reportable, Absolute Neuts (auto) 7.3, A bsolute Lymphs (auto) 0.80 L, Total Counted 100, Neutrophils % (Manual) 79 H, B and Neutrophils % 7 H, Lymphocytes % (Manual) 9 L, Monocytes % (Manual) 5, Diff Path Review May foll, Platelet Estimate ADEQUATE, Anisocytosis 1+, Sodium 129 L, Potassium 4.2, Chloride 98, Carbon Dioxide 24.0, Anion Gap 7, BUN 51 H, C reatinine 1.37 H, Estim Creat Clear Calc 51.44, Est GFR (MDRD) Af Amer 65, Est GFR (MDRD) Non-Af 53 L, BUN/Creatinine Ratio 37.2 H, Glucose 118 H, Lactic Acid 1.8, Calcium 9.1, Total Bilirubin 0.80, AST 67 H, ALT 51, Alkaline Phosphatase 76, Troponin I High Sens 63, Total Protein 5.7 L, Albumin 2.8 L, Globulin 2.9, Albumin/Globulin Ratio 1.0, Lipase 19 10/25/23 14:55: Troponin I High Sens 63 Imaging Radiology Impression Chest X-Ray 10/25/23 10:11 IMPRESSION: Chronic interstitial changes with superimposed lingular opacification suggesting atelectasis or early infiltrate. Follow-up recommended to assure resolution Electronically Signed: Mak Banks MD at 11:22 EDT , Hip/Pelvis X-Ray 10/25/23 10:11 IMPRESSION: Moderate degenerative arthrosis of the left hip joint. No demonstrated acute fracture. Electronically Signed: Wes Pineda MD at 11:29 EDT , Assessment & Plan Assessment/Plan (1) Generalized weakness: (2) Dehydration: PLAN: Plan 1. Generalized weakness and debility secondary to decreased p.o. intake ? May have slight dehydration will place him on gentle IV fluids ? No obvious signs of infection, he is on Cipro 500 mg p.o. twice daily as well as fluconazole and acyclovir therefore will obtain a respiratory panel ? Blood cultures pending and a urine culture was ordered though no UA has been done yet ? Will resume all of his prophylactic medications, he only takes Decadron on days that he is receiving chemotherapy 2. Myelodysplastic syndrome with chronic anemia ? Hemoglobin 7.1, he does periodically receive transfusions therefore will not transfuse unless below 7 ? Continue with prophylactic antibiotics as well as antifungal and antiviral medications ? Decadron and hydroxyzine are only for the days that he receives chemotherapy ? He receives azacitidine every day for 5 days and then has a 21-day break 3. Essential HTN/HLD ? Will hold his benazepril and hydrochlorothiazide secondary to his elevation in his creatinine unclear if this is an LEIDY or new baseline given the paucity of lab work in our system ? Continue with statin ? Will monitor and make adjustments as necessary DVT: SCDs 75 minutes was spent on direct patient care, including documentation as well as chart review and collaboration with colleagues Charges/Coding Visit Charges Inpatient E&M: 15177 Init Hosp L3
[2023-10-25] MEDS: Acyclovir 200 MG Capsule 400 MG PO (21:13)
[2023-10-25] MEDS: Atorvastatin Calcium 40 MG Tablet PO (21:13)
[2023-10-25] MEDS: Ciprofloxacin 500 MG Tablet PO (21:13)
[2023-10-26] VITALS (13 sets, daily range): BP systolic 106–145; BP diastolic 47–71; PULSE 46–81; RESP 16–18; TEMP 36.5–37.1; O2SAT 94–100
[2023-10-26] MEDS: Menthol/Lanolin/Calamine/Znox 113 GM Tube 1 APPLIC TOPICAL ×4 (00:35→23:06)
[2023-10-26] MEDS: Metoclopramide 10 MG Tablet PO ×2 (05:21→23:07)
[2023-10-26] MEDS: 0.9% Normal Saline (1000mL) 1,000 ML 75 ML IV (05:59)
[2023-10-26 07:10] LABS: Absolute Neutrophil Count 3.9 X10^3/uL (2.0-7.7); Basophil# 0.04 X10^3/uL; Basophil% 0.8 % (0-1); Eosinophil# 0.03 X10^3/uL; Eosinophils% 0.6 % (0-5); Hematocrit 16.4 % (40-54); Lymphocyte % 14.2 % (19-41); Mean Corp Hgb Conc 33.5 g/dL (32-36); Mean Corpuscular Hgb 32.2 pg (27.0-32.0); Mean Corpuscular Volume 95.9 fL (80-94); Mean Platelet Vol. 12.2 fl (6.2-12.0); Monocyte# 0.22 X10^3/uL; Monocyte% 4.5 % (0-10); NRBC Flagged by Analyzer 0 % (0-5); Neutrophil # 3.85 X10^3/uL (2.7-7.7); Neutrophil % 77.9 % (47-70); POSITIVE COUNT YES; POSITIVE MORPHOLOGY YES; Platelet Count 142 K/mm3 (150-450); RBC Distribution Width CV 23.6 % (11.6-14.6); RBC Distribution Width SD 74.7 fl (35.1-43.9); Red Blood Count 1.71 M/mm3 (4.6-6.2); White Blood Count 4.9 K/mm3 (4.4-11.0)
[2023-10-26 07:16] LABS: Bacteria 0 SEEN /hpf (None Seen); Mucous, Urine 0 SEEN /hpf (<or=2+); Squamous Epithelial Cells - UA 0 SEEN /hpf (0-5); White Blood Cells 0 SEEN /hpf (0-5)
[2023-10-26 07:59] LABS: Color, Urine Yellow (Yellow); Glucose, Dipstick Normal (Normal); Ketone-Dipstick Negative (Negative); Leukocyte Esterase-Dipstick Negative /ul (Negative); Nitrite-Dipstick Negative (Negative); Occult Blood-Urine 25 /ul (Negative); Protein-Dipstick 30 mg/dl (Negative); Specific Gravity, Urine 1.015 (1.002-1.030); Urine Bilirubin Dipstick Negative (Negative); Urine Clarity Clear (Clear); Urine Urobilinogen Normal (Normal)
[2023-10-26 08:06] LABS: Red Blood Cells-Urine 0-5 SEEN /hpf (0-5)
[2023-10-26 08:26] LABS: Anion Gap 7 (5-15); BUN 33 mg/dL (7-18); BUN/Creat Ratio 37.7 RATIO (10-20); Calcium,Total 8.4 mg/dL (8.5-10.1); Chloride 107 mmol/L (98-107); Creatinine, Serum 0.88 mg/dL (0.70-1.30); EST Glomerular Filtration Rate 89 mL/min (>60); Est Glom Filt Rate - Afr Amer 108 mL/min (>60); Estimated Creatinine Clearance 80.08 ml/min; Glucose 93 mg/dL (74-106); Sodium Level 137 mmol/L (136-145)
[2023-10-26 08:50] LABS: Hemoglobin 5.5 g/dL (13.0-16.5)
[2023-10-26 08:54] LABS: Differential Indicated SCAN CRITERIA MET
[2023-10-26] MEDS: Ciprofloxacin 500 MG Tablet PO ×2 (08:58→23:07)
[2023-10-26] MEDS: Acyclovir 200 MG Capsule 400 MG PO ×2 (08:59→23:07)
[2023-10-26] MEDS: Fluconazole 100 MG Tablet 400 MG PO (08:59)
[2023-10-26 09:05] LABS: Anisocytosis 2+; Differential Comment SCANNED; Hypochromasia 1+; Macrocytosis 1+; Microcytosis 1+
[2023-10-26 10:29] LABS: Pathologist Review Reviewed
--- NOTE | 2023-10-26 12:11 | CASEMGMT ---
Discharge Planning A list of?SNF providers including quality and resource use data and consistent with the patient's preferred geographic region, medical needs, and insurance network was created in [employer] Guide.? This list was provided to the SW. Lexy Waldron Discharge Planning Asst.
--- NOTE | 2023-10-26 12:30 | CASEMGMT ---
RN ANTONIETTA RADIOLOGIC TECHNOLOGIST ANTONIETTA?to room to meet with patient and for initial transition planning/care coordination assessment. RN ANTONIETTA?introduced self and role at [facility]. Pt sitting up in chair in room in no distress at this time. sitting beside pt, visiting. Pt is A/O, KOOTENAI. The following information obtained from both and pt. Care providers, pharmacy, and demographics verified/updated at this time. Strata:?2 PCP: [facility] Specialists: Conner Kendrick oncologist/fruit loader. Pt goes to their infusion center every 21 days (goes daily for 7 days). Preferred Pharmacy: [facility] [address] Otherwise, gets all of [place]'s from [place]. [place], [facility] A/B Prescription Benefit: [place] only LNOK: Earlene Living Arrangements: Lives w/ in log home w/basement w/3 steps to enter. Home is 3-level. Pt never goes to the loft and seldom goes to the basement. Pt mostly stays on main level. Pt was independent w/ADL's until Tuesday. Starting Tuesday, pt became very weak and has been assisting w/bathing/dressing him. typically manages home mgnt tasks. Transportation:? DME: States has/uses the following DME: shower chair, cane, rollator, grab bars. He also has other DME from prior surgery, that he does not currently use. HHC/SNF: No hx of SNF. Has had HHC in the past. Discussed discharge planning. Pt and are both prefer pt to discharge home and would like HHC. They are hopeful pt will re-gain his strength and be able to get close to his baseline by discharge and be safe to discharge home. They would like to have HHC through the [facility], instead of through [facility] and if SNF is needed, they would like to use [facility] SNF as well. Educated on [facility] benefits for both HHC and SNF's. Plan: TBD, pending progress w/therapy. Talia THAKKAR RN, CM
--- NOTE | 2023-10-26 14:51 | PCM.PN.HOSP ---
Reason for Visit Reason for Visit: Diagnoses Dehydration (10/26/23) Weakness (10/26/23) Subjective Subjective Patient was seen and examined today, his hemoglobin this morning was 5.5, I changed the patient to a full admission, he will receive 3 units of packed red blood cells and CBC will be rechecked tomorrow. I talked to the patient's who was in the room at the time of my examination today. Objective Data Objective Data Vital Signs: Vital Signs Temp Pulse Resp BP Pulse Ox O2 Del Method 98.0 F 68 18 116/66 96 Room Air 10/26/23 14:41 10/26/23 14:41 10/26/23 14:41 10/26/23 14:41 10/26/23 14:41 10/26/23 14:41 Oxygen Delivery Method Room Air Weight: 95.1 kg Body Mass Index (BMI) 30.0 Intake & Output: Intake and Output for Last 24 Hours 10/24/23 10/25/23 10/26/23 23:59 23:59 23:59 Intake Total 2220 / 2420 1386.25 / 1386.25 Output Total 350 / 350 Balance 2220 / 2420 1036.25 / 1036.25 Lab / Micro Data 10/26/23 06:49 10/26/23 06:49 Labs: Laboratory Results - last 24 hr 10/25/23 10:31: Diff Path Review Reviewed 10/25/23 14:55: Troponin I High Sens 63 10/26/23 06:49: WBC 4.9, RBC 1.71 L, Hgb 5.5 L*, Hct 16.4 L, MCV 95.9 H, MCH 32.2 H, MCHC 33.5, RDW Std Deviation 74.7 H, RDW Coeff of Philip 23.6 H, Plt Count 142 L, MPV 12.2 H, Immature Gran % (Auto) 2.000 H, Neut % (Auto) 77.9 H, Lymph % (Auto) 14.2 L, [place] % (Auto) 4.5, Eos % (Auto) 0.6, Baso % (Auto) 0.8, Absolute Neuts (auto) 3.9, Absolute Lymphs (auto) 0.70 L, Nucleated RBC % 0, Differential Comment SCANNED, Diff Path Review May foll, Hypochromasia 1+, Anisocytosis 2+, Microcytosis 1+, Macrocytosis 1+, Sodium 137, Potassium 3.0 L, Chloride 107, Carbon Dioxide 23.0, Anion Gap 7, BUN 33 H, Creatinine 0.88, Estim Creat Clear Calc 80.08, Est GFR (MDRD) Af Amer 108, Est GFR (MDRD) Non-Af 89, BUN/Creatinine Ratio 37.7 H, Glucose 93, Calcium 8.4 L 10/26/23 07:00: Urine Color Yellow, Urine Clarity Clear, Urine pH 6.0, Ur Specific [place] 1.015, Urine Protein 30 H, Urine Glucose (UA) Normal, Urine Ketones Negative, Urine Occult Blood 25 H, Urine Nitrite Negative, Urine Bilirubin Negative, Urine Urobilinogen Normal, Ur Leukocyte Esterase Negative, Urine RBC 0-5 SEEN, Urine WBC 0 SEEN, Ur Squamous Epith Cells 0 SEEN, Urine Bacteria 0 SEEN, Urine Mucus 0 SEEN 10/26/23 08:30: Blood Type A POSITIVE, Antibody Screen NEGATIVE, Crossmatch See Detail Micro: Microbiology 10/25/23 23:59 Mucosa - Nasopharyngeal SARS-CoV-2, Influenza & RSV (PCR) - Final Physical Exam Const alert, oriented x3, no apparent distress and average body habitus Constitutional Narrative: Patient appears a stated age, he is hard of hearing General Appearance: cooperative, well kempt and well developed Orientation / Consciousness: awake, oriented to person, oriented to place and oriented to time HEENT normocephalic and moist oral mucous membranes Eyes PERRL, EOMs intact bilaterally and conjunctivae normal Neck supple and no JVD General: trachea midline Resp normal respiratory effort, no retractions, no use of accessory muscles and clear to auscultation bilaterally Auscultation: Negative for rales, rhonchi or wheezes Cardio regular rate, regular rhythm, S1 normal heart sound, S2 normal heart sound, no murmurs, no rub and no gallops GI normal to inspection, nondistended, normoactive bowel sounds, soft to palpation, non-tender and non-distended Extremity no clubbing, cyanosis or edema Skin no rashes or lesions noted General Skin Exam: no breakdown Neuro oriented x3, CN's II-XII intact bilaterally, moves all extremities, no focal motor deficits and no sensory deficits noted Sensorium / Orientation: awake and alert Speech: speech normal Psych affect normal Assessment & Plan Assessment/Plan (1) Generalized weakness: PLAN: Plan 1. Acute on chronic anemia secondary to myelodysplastic syndrome-patient will receive 3 units of packed red blood cells today, I will repeat his CBC tomorrow. Patient follows up at the [facility] regarding his myelodysplastic syndrome. #2 generalized weakness-secondary to multiple medical issues including myelodysplastic syndrome and dehydration-continue with PT and OT #3 mild dehydration-I will stop patient's IV fluid, his creatinine has corrected #4 hyperlipidemia-patient is on atorvastatin Total clinical time spent by myself addressing the patient's medical issues, reviewing all of his data, and collaborating with patient's care team: 35 minutes Charges/Coding Visit Charges Inpatient E&M: 92080 Subs Hosp L2
[2023-10-26] MEDS: Atorvastatin Calcium 40 MG Tablet PO (23:07)
[2023-10-27 03:49] VITALS: BP 141/61; PULSE 66; RESP 16; TEMP 36.8; O2SAT 96
[2023-10-27] MEDS: Metoclopramide 10 MG Tablet PO ×3 (06:11→22:24)
[2023-10-27] MEDS: Menthol/Lanolin/Calamine/Znox 113 GM Tube 1 APPLIC TOPICAL ×3 (06:11→22:24)
[2023-10-27 07:19] LABS: Absolute Lymphocyte Count 1.14 X10^3/uL (0.83-4.51); Absolute Neutrophil Count 3.2 X10^3/uL (2.0-7.7); Basophil# 0.09 X10^3/uL; Basophil% 1.9 % (0-1); Eosinophil# 0.09 X10^3/uL; Eosinophils% 1.9 % (0-5); Lymphocyte # 1.14 X10^3/ul (0.83-4.51); Lymphocyte % 23.5 % (19-41); Mean Corp Hgb Conc 33.3 g/dL (32-36); Mean Corpuscular Hgb 30.8 pg (27.0-32.0); Mean Corpuscular Volume 92.3 fL (80-94); Mean Platelet Vol. 11.9 fl (6.2-12.0); Monocyte% 4.1 % (0-10); NRBC Flagged by Analyzer 0 % (0-5); Neutrophil # 3.18 X10^3/uL (2.7-7.7); Neutrophil % 65.5 % (47-70); POSITIVE MORPHOLOGY YES; Platelet Count 120 K/mm3 (150-450); RBC Distribution Width CV 21.5 % (11.6-14.6); RBC Distribution Width SD 65.1 fl (35.1-43.9); White Blood Count 4.9 K/mm3 (4.4-11.0)
[2023-10-27 07:22] LABS: Differential Indicated SCAN CRITERIA MET
[2023-10-27 08:16] LABS: Anisocytosis 2+
[2023-10-27] MEDS: Fluconazole 100 MG Tablet 400 MG PO (09:08)
[2023-10-27] MEDS: Ciprofloxacin 500 MG Tablet PO ×2 (09:08→22:24)
[2023-10-27] MEDS: Acyclovir 200 MG Capsule 400 MG PO ×2 (09:09→22:24)
[2023-10-27 09:22] VITALS: BP 147/67; PULSE 60; RESP 18; TEMP 36.6; O2SAT 100
[2023-10-27 09:45] LABS: Anion Gap 2 (5-15); BUN 25 mg/dL (7-18); BUN/Creat Ratio 32.7 RATIO (10-20); Calcium,Total 8.5 mg/dL (8.5-10.1); Chloride 109 mmol/L (98-107); Creatinine, Serum 0.76 mg/dL (0.70-1.30); EST Glomerular Filtration Rate 105 mL/min (>60); Est Glom Filt Rate - Afr Amer 127 mL/min (>60); Estimated Creatinine Clearance 88.09 ml/min; Glucose 116 mg/dL (74-106); Potassium 3.5 mmol/L (3.5-5.1); Sodium Level 137 mmol/L (136-145)
--- NOTE | 2023-10-27 13:38 | PN.HOSP_ITS ---
Reason for Visit Reason for Visit: Diagnoses Dehydration (10/26/23) Weakness (10/26/23) Subjective Subjective Saw patient at bedside this morning, present. Patient was mildly fatigued appearing but otherwise sitting up comfortably in bedside chair, conversing normally, in no acute distress. Patient and note that he appears significantly improved today compared to admission. He was able to get up and use the bathroom with only minor assistance overnight. He was looking forward to working with physical therapy today. He does report mild irritation with urination but otherwise denies any acute pain or discomfort. No other new concerns today. Objective Data Objective Data Vital Signs: Vital Signs Temp Pulse Resp BP Pulse Ox O2 Del Method 97.8 F 60 18 147/67 H 100 Room Air 10/27/23 09:22 10/27/23 09:22 10/27/23 09:22 10/27/23 09:22 10/27/23 09:22 10/27/23 09:22 Oxygen Delivery Method Room Air Weight: 95.1 kg Body Mass Index (BMI) 30.0 Intake & Output: Intake and Output for Last 24 Hours 10/25/23 10/26/23 10/27/23 23:59 23:59 23:59 Intake Total 2220 / 2420 2986.25 / 3186.25 400 / 400 Output Total 350 / 750 400 / 400 Balance 2220 / 2420 2636.25 / 2436.25 0 / 0 Lab / Micro Data 10/27/23 06:44 10/27/23 06:44 Labs: Laboratory Results - last 24 hr 10/26/23 08:30: Blood Type A POSITIVE, Antibody Screen NEGATIVE, Crossmatch See Detail 10/27/23 06:44: WBC 4.9, RBC 2.60 L, Hgb 8.0 L, Hct 24.0 L, MCV 92.3, MCH 30.8, MCHC 33.3, RDW Std Deviation 65.1 H, RDW Coeff of Philip 21.5 H, Plt Count 120 L, MPV 11.9, Immature Gran % (Auto) 3.100 H, Neut % (Auto) 65.5, Lymph % (Auto) 23.5, [place] % (Auto) 4.1, Eos % (Auto) 1.9, Baso % (Auto) 1.9 H, Absolute Neuts (auto) 3.2, Absolute Lymphs (auto) 1.14, Nucleated RBC % 0, Anisocytosis 2+, Sodium 137, Potassium 3.5, Chloride 109 H, Carbon Dioxide 26.0, Anion Gap 2 L, B UN 25 H, Creatinine 0.76, Estim Creat Clear Calc 88.09, Est GFR (MDRD) Af Amer 127, Est GFR (MDRD) Non-Af 105, BUN/Creatinine Ratio 32.7 H, Glucose 116 H, Calcium 8.5 Micro: Microbiology 10/26/23 07:00 Urine, Clean Catch Urine Culture - Final Mixed Gram Positive Organisms 10/25/23 23:59 Mucosa - Nasopharyngeal SARS-CoV-2, Influenza & RSV (PCR) - Final Physical Exam Const alert, oriented x3 and no apparent distress Constitutional Narrative: Elderly male, obese, mildly fatigued appearing, otherwise sitting up comfortably in bed, conversing normally, in no acute distress. General Appearance: cooperative and comfortable HEENT normocephalic, head/scalp atraumatic, hearing grossly normal bilaterally, nasal mucous membranes and turbinates normal and moist oral mucous membranes Eyes PERRL, EOMs intact bilaterally and conjunctivae normal Neck full ROM Chest inspection of chest normal Resp normal respiratory effort, normal air movement, no use of accessory muscles and clear to auscultation bilaterally Cardio regular rate, regular rhythm, no murmurs and peripheral pulses 2+ throughout GI normal to inspection, nondistended, normoactive bowel sounds, soft to palpation, non-tender and non-distended Back/Spine normal ROM Extremity normal to inspection, full ROM and no pedal edema Skin no rashes or lesions noted Neuro no focal motor deficits and no sensory deficits noted Speech: speech normal Psych mental status grossly normal Assessment & Plan Assessment/Plan (1) Generalized weakness: (2) Acute on chronic anemia: PLAN: Plan Patient is a 78-year-old male who presented [facility] ED on 10/25/2023 with worsening weakness. 1. Acute on chronic anemia in setting of myelodysplastic syndrome, improved ? Hemoglobin 7.1 on admit, down trended to 5.5 on hospital day 2. No signs of blood loss. Baseline hemoglobin around 7-8. Follows with hematology/[place]cology at the [facility] for treatment of his myelodysplastic syndrome. Suspected that acute on chronic anemia was secondary to recent chemotherapy. S/p 3 units of packed red blood cells with repeat hemoglobin 8.0 on 10/26. Patient with significant improvement in energy level and weakness after transfusion. Will repeat CBC tomorrow and if this remains stable, patient will be medically ready for discharge. Continue home acyclovir and ciprofloxacin that are prescribed for prophylaxis in setting of treatment for myelodysplastic syndrome. 2. Acute on chronic debility, improving ? PT/OT/case management following. Patient with borderline therapy scores and would qualify for a longterm facility, but patient and prefer home with home health care and will obtain home health care services through the [facility]. Patient notably with good improvement in functional status after transfusion as noted above. 3. Mild LEIDY, resolved ? Creatinine 1.37 on admit, improved to baseline around 0.8-0.9 after IV fluid resuscitation. Presume secondary to prerenal etiology in setting of anemia and possible mild dehydration on admission. Holding home benzepril and hydrochlorothiazide as noted below. 4. Hyponatremia, resolved ? Sodium 129 on admit, improved to 137 on hospital day 2 after IV fluid resuscitation. Presumed secondary to mild dehydration and home hydrochlorothiazide, holding hydrochlorothiazide as noted below. Chronic medical conditions: ? Obesity: BMI 30 on admit. Complicates hospital course, care and prognosis. ? Hypertension: Home benzepril and hydrochlorothiazide held on admission. Blood pressure remaining normotensive to mildly hypertensive. Have concerned that patient may have been overmedicated, will plan to hold these medications on discharge and patient can discuss further with PCP through [facility] on timing of restarting if needed. ? Hyperlipidemia: Continue home statin. DVT prophylaxis: SCDs CODE STATUS: Full code, unverified Expected disposition: Home with home health care, 1 to 2 days Total clinical time spent by myself addressing the patient's medical issues, reviewing all the data, and collaborating with patient's care team: 35 minutes. Charges/Coding Visit Charges Inpatient E&M: 05823 Subs Hosp L2
--- NOTE | 2023-10-27 13:57 | CASEMGMT ---
Addendum entered by Joel Waddell 10/27/23 18:32: Discharge instructions to be faxed to [facility] for HHC @ dc: [phone]. Addendum entered by Joel Waddell 10/27/23 15:00: PT/OT notes from today faxed to [facility]. Addendum entered by Joel Waddell 10/27/23 14:45: Therapy has worked w/pt and walked w/him in the halls w/use of walker. HHC recommended. Original Note: JAZMIN MANE NOTE: JAZMIN MANE to room to talk w/pt and , who is in room visiting. Pt sitting up in chair. He states he is feeling much stronger today. Discussed discharge planning. Pt and both decline SNF and wish for pt to discharge home. Pt states he feels strong enough to go home and feels like he will be safe to get around. states she was in the room when staff was walking w/pt and she also feels like pt will be safe @ home. They confirm they would like HHC through the [facility]. They both feel only PT/OT needed, not SN at this time. Pt and both state they have all DME needed @ home and deny having other discharge needs. Referral sent to [facility] ([facility] @ the [facility] for HHC: PT/OT. JAZMIN MANE spoke w/Frida @ [facility] who confirms she did receive the referral. Frida stated d/t therapy notes recommending SNF, [employer] and SW will need to review referral and they would like to speak with pt as well. She was made aware pt has received 3 Units PRBC's since then, he states he is feeling much better/stronger today, and made aware therapy to work w/pt yet today and updated notes will be sent to them when available. She voices appreciation. She states referral will be reviewed and once approved, [facility] will coordinate w/a HHC agency. She states it takes up to 48 hrs to coordinate care and she cannot guarantee when HHC SOC will be. Pt and made aware. They both state they are comfortable w/pt going home and not having HHC until next week, being aware SOC could be as late as mid to late next week. They both state are still okay with this. states she has exercises she can work on with pt in the home. Call received from Rosa MAHAN, @ [facility]. She states has attempted to reach pt and but unsuccessful. JAZMIN MANE went to room and gave pt the phone to talk w/NEGRITO at this time. Talia NICHOLEN JAZMIN CM
[2023-10-27 14:00] VITALS: BP 139/78; PULSE 73; RESP 18; TEMP 36.7; O2SAT 95
--- NOTE | 2023-10-27 16:07 | NURSING ---
pt to OR via bed
[2023-10-27 16:12] VITALS: PULSE 73
[2023-10-27 22:18] VITALS: BP 122/54; PULSE 63; RESP 16; TEMP 36.8; O2SAT 96
[2023-10-27] MEDS: Atorvastatin Calcium 40 MG Tablet PO (22:24)
[2023-10-28 05:16] VITALS: BP 127/54; PULSE 62; RESP 16; TEMP 36.7; O2SAT 98
[2023-10-28] MEDS: Menthol/Lanolin/Calamine/Znox 113 GM Tube 1 APPLIC TOPICAL (05:17)
[2023-10-28] MEDS: Metoclopramide 10 MG Tablet PO (05:18)
[2023-10-28 06:55] LABS: Hematocrit 25.4 % (40-54); Hemoglobin 8.3 g/dL (13.0-16.5); Mean Corp Hgb Conc 32.7 g/dL (32-36); Mean Corpuscular Hgb 30.3 pg (27.0-32.0); Mean Corpuscular Volume 92.7 fL (80-94); Mean Platelet Vol. 12.2 fl (6.2-12.0); POSITIVE MORPHOLOGY YES; Platelet Count 103 K/mm3 (150-450); RBC Distribution Width CV 21.2 % (11.6-14.6); Red Blood Count 2.74 M/mm3 (4.6-6.2)
[2023-10-28 06:59] LABS: Scan Indicated on CBC? Y/N YES- FLAGS NOTED
[2023-10-28 07:12] LABS: Anion Gap 8 (5-15); BUN 16 mg/dL (7-18); BUN/Creat Ratio 24.2 RATIO (10-20); Calcium,Total 8.8 mg/dL (8.5-10.1); Chloride 108 mmol/L (98-107); Creatinine, Serum 0.66 mg/dL (0.70-1.30); EST Glomerular Filtration Rate 124 mL/min (>60); Est Glom Filt Rate - Afr Amer 150 mL/min (>60); Estimated Creatinine Clearance 88.09 ml/min; Glucose 124 mg/dL (74-106); Sodium Level 139 mmol/L (136-145)
[2023-10-28 08:32] VITALS: BP 135/56; PULSE 70; RESP 18; TEMP 36.7; O2SAT 98
[2023-10-28] MEDS: Potassium Chloride Oral Tablet 20 MEQ 40 MEQ PO (08:42)
[2023-10-28 08:56] LABS: Pathologist Review Reviewed
[2023-10-28] MEDS: Fluconazole 100 MG Tablet 400 MG PO (09:00)
[2023-10-28] MEDS: Ciprofloxacin 500 MG Tablet PO (09:00)
[2023-10-28] MEDS: Acyclovir 200 MG Capsule 400 MG PO (09:00)
--- NOTE | 2023-10-28 11:30 | DS.PCM_ITS ---
Providers Date of Admission: 10/26/23 Date of Discharge: 10/28/23 Primary Care Physician: [facility] Reason For Visit: ACUTE ON CHRONIC ANEMIA Diagnosis Discharge Diagnosis (1) Generalized weakness: Status: Acute Code(s): R53.1 - Weakness (2) Acute on chronic anemia: Status: Chronic Code(s): D64.9 - Anemia, unspecified Medications at Discharge Home Medications acyclovir 400 mg tablet 400 mg PO BID 06/17/23 atorvastatin 40 mg tablet 40 mg PO QHS 06/17/23 azacitidine 100 mg solution for injection 125 mg subcut DAILY 06/17/23 benazepril 10 mg tablet 10 mg PO DAILY 06/17/23 cholecalciferol (vitamin D3) 25 mcg (1,000 unit) capsule 25 mcg PO DAILY 06/17/23 ciprofloxacin HCl 500 mg tablet (Cipro) 500 mg PO BID 06/17/23 cyanocobalamin (vitamin B-12) 1,000 mcg capsule 1,000 mcg PO DAILY 06/17/23 dexamethasone 4 mg tablet 8 mg PO DAILY 06/17/23 fluconazole 200 mg tablet 400 mg PO DAILY 06/17/23 fluticasone propionate 50 mcg/actuation nasal spray,suspension (Aller-Moose) 2 spray intranasal DAILY 06/17/23 hydrochlorothiazide 25 mg tablet 25 mg PO DAILY 06/17/23 hydroxyzine HCl 10 mg tablet 20 mg PO Q6H PRN itching 06/17/23 ketoconazole 2 % shampoo 1 applic topical Q14D 06/17/23 metoclopramide HCl 10 mg tablet (Reglan) 10 mg PO TID 06/17/23 terazosin 5 mg capsule 5 mg PO QHS 06/17/23 thiamine HCl (vitamin B1) 100 mg tablet 100 mg PO DAILY 06/17/23 vitamin E 670 mg (1,000 unit) capsule 670 mg PO DAILY 06/17/23 vitamins A,C,Y-pdyy-livfur 2,148 mcg-113 mg-45 mg-17.4 mg tablet (Eye Multivitamin) 1 tab PO BID 06/17/23 albuterol sulfate 90 mcg/actuation aerosol inhaler 2 inh inhalation Q4H PRN shortness of breath or wheezing 10/25/23 clobetasol 0.05 % topical cream 1 applic topical BID 10/25/23 desonide 0.05 % topical cream 1 applic topical Q12H 10/25/23 diclofenac sodium 75 mg tablet,delayed release 75 mg PO BID 10/25/23 ondansetron 8 mg disintegrating tablet 8 mg PO Q8H 10/25/23 sennosides 8.6 mg-docusate sodium 50 mg tablet (Colace 2-In-1) 1 tab-cap PO BID 10/25/23 Hospital Course Operations None Procedures Blood transfusion, EKG and - (Chest x-ray, hip/pelvis x-ray) Summary of Care Provided Minutes Spent on Discharge: 35 Hospital Course: Patient is a 78-year-old male who presented [facility] ED on 10/25/2023 with worsening weakness. Hospital course as noted below. Patient discharged home with home health care in stable condition on 10/27. 1. Acute on chronic anemia in setting of myelodysplastic syndrome, improved ? Hemoglobin 7.1 on admit, down trended to 5.5 on hospital day 2. No signs of blood loss. Baseline hemoglobin around 7-8. Follows with hematology/oncology at the [facility] for treatment of his myelodysplastic syndrome. Suspected that acute on chronic anemia was secondary to recent chemotherapy. S/p 3 units of packed red blood cells with repeat hemoglobin 8.0 on 10/26. Hemoglobin remained stable at 8.3 on day of discharge. Patient had significant improvement in energy level and weakness after transfusion. Continue follow-up with corporate tax manager/oncologist at the [place] for management of your myelodysplastic syndrome. Continue home acyclovir and ciprofloxacin on discharge. 2. Acute on chronic debility, improving ? PT/OT/case management followed. Patient initially had borderline therapy scores but had significant improvement in functional status after blood transfusion. Patient preferred to obtain home health care services through the [place]. Discharged home with home health care in stable condition on 10/27. 3. Mild LEIDY, resolved ? Creatinine 1.37 on admit, improved to baseline around 0.8-0.9 after IV fluid resuscitation. Presume secondary to prerenal etiology in setting of anemia and possible mild dehydration on admission. Holding home benzepril and hydrochlorothiazide as noted below. 4. Hyponatremia, resolved ? Sodium 129 on admit, improved to 137 on hospital day 2 after IV fluid resuscitation. Presumed secondary to mild dehydration and home hydrochlorothiazide, holding hydrochlorothiazide as noted below. Chronic medical conditions: ? Obesity: BMI 30 on admit. Complicated hospital course, care and prognosis. ? Hypertension: Home benzepril and hydrochlorothiazide were held on admission. Patient's blood pressure remained normotensive during hospitalization. Will continue to hold these medications on discharge and recommend that [facility] to discuss if and when these medications need to be restarted. ? Hyperlipidemia: Continue home statin. Total clinical time spent by myself addressing the patient's medical issues, reviewing all the data, and collaborating with patient's care team: 35 minutes. Physical Exam Const alert, oriented x3 and no apparent distress Constitutional Narrative: Elderly male, obese, energy much improved, sitting up comfortably in bed, conversing normally, in no acute distress. General Appearance: cooperative and comfortable HEENT normocephalic, head/scalp atraumatic, hearing grossly normal bilaterally, nasal mucous membranes and turbinates normal and moist oral mucous membranes Eyes PERRL, EOMs intact bilaterally and conjunctivae normal Neck full ROM Chest inspection of chest normal Resp normal respiratory effort, normal air movement, no use of accessory muscles and clear to auscultation bilaterally Cardio regular rate, regular rhythm, no murmurs and peripheral pulses 2+ throughout GI normal to inspection, nondistended, normoactive bowel sounds, soft to palpation, non-tender and non-distended Back/Spine normal ROM Extremity normal to inspection, full ROM and no pedal edema Skin no rashes or lesions noted Neuro no focal motor deficits and no sensory deficits noted Speech: speech normal Psych mental status grossly normal Weight / BMI Weight Weight: 95.1 kg Body Mass Index (BMI) 30.0 ABG / Lab / Microbiology Data 10/28/23 06:38 10/28/23 06:38 Laboratory: Laboratory Results - last 24 hr 10/26/23 06:49: Diff Path Review Reviewed 10/28/23 06:38: WBC 4.0 L, RBC 2.74 L, Hgb 8.3 L, Hct 25.4 L, MCV 92.7, MCH 30.3, MCHC 32.7, RDW Std Deviation 66.0 H, RDW Coeff of Philip 21.2 H, Plt Count 103 L, MPV 12.2 H, Sodium 139, Potassium 3.0 L, Chloride 108 H, Carbon Dioxide 23.0, Anion Gap 8, BUN 16, Creatinine 0.66 L, Estim Creat Clear Calc 88.09, Est GFR (MDRD) Af Amer 150, Est GFR (MDRD) Non-Af 124, BUN/Creatinine Ratio 24.2 H, Glucose 124 H, Calcium 8.8 Microbiology: Microbiology 10/25/23 10:31 Blood Culture (Wb) - Anticubital Left Blood Culture - Preliminary No growth in 48 hours. 10/26/23 07:00 Urine, Clean Catch Urine Culture - Final Mixed Gram Positive Organisms 10/25/23 23:59 Mucosa - Nasopharyngeal SARS-CoV-2, Influenza & RSV (PCR) - Final Meaningful Use Info Meaningful Use Meaningful Use Diagnoses (Choose all that apply): None applicable Ischemic Stroke Statin Dosing Therapy Reference: STATIN DOSE THERAPY REFERENCE: * Patients > 75 years receive moderate or high dose statin therapy. * Patients 75 years or YOUNGER should receive HIGH intensity statin dose unless contraindicated. You will be required to document reason for non-treatment if statin daily dose does not meet guidelines. HIGH DOSE STATIN THERAPY DAILY Atorvastatin > than or = to 40 mg Rosuvastatin > than or = to 20 mg Amlodipine + Atorvastatin > than or = to 2.5/40 mg Ezetimibe + Simvastatin 10/80 mg Simvastatin 80mg Discharge Plan Admission Admit Date/Time: 10/26/23 11:37 Primary Reason for Your Visit: weakness and low blood count Attending Provider: Reynaldo Rutledge Primary Care Provider: [facility],[place] Consulting Providers: Ramy Whaley; Salomón Cifuentes Instructions Patient Instructions: ED Potassium-Rich Foods Additional Instructions / Restrictions: Please hold off on taking your benzepril or hydrochlorothiazide medications until follow-up with your primary care doctor. Continue all other medications as normal. Discharge Orders/Prescriptions Prescriptions: Continued acyclovir 400 mg tablet 400 mg PO BID atorvastatin 40 mg tablet 40 mg PO QHS azacitidine 100 mg recon soln 125 mg subcut DAILY ciprofloxacin HCl [Cipro] 500 mg tablet 500 mg PO BID cholecalciferol (vitamin D3) 25 mcg (1,000 unit) capsule 25 mcg PO DAILY cyanocobalamin (vitamin B-12) 1,000 mcg capsule 1,000 mcg PO DAILY dexamethasone 4 mg tablet 8 mg PO DAILY fluconazole 200 mg tablet 400 mg PO DAILY fluticasone propionate [Aller-Moose] 50 mcg/actuation spray,suspension 2 spray intranasal DAILY Rx Instructions: administer into each nostril hydroxyzine HCl 10 mg tablet 20 mg PO Q6H PRN (Reason: itching) ketoconazole 2 % shampoo 1 applic topical Q14D metoclopramide HCl [Reglan] 10 mg tablet 10 mg PO TID Eye Multivitamin 2,148 mcg-113 mg-45 mg-17.4mg tablet 1 tab PO BID Rx Instructions: administer with AM and PM meals terazosin 5 mg capsule 5 mg PO QHS thiamine HCl (vitamin B1) 100 mg tablet 100 mg PO DAILY vitamin E 670 mg (1,000 unit) capsule 670 mg PO DAILY albuterol sulfate 90 mcg/actuation HFA aerosol inhaler 2 inh inhalation Q4H PRN (Reason: shortness of breath or wheezing) clobetasol 0.05 % cream 1 applic topical BID desonide 0.05 % cream 1 applic topical Q12H diclofenac sodium 75 mg tablet,delayed release (DR/EC) 75 mg PO BID sennosides-docusate sodium [Colace 2-In-1] 8.6-50 mg tablet 1 tab-cap PO BID ondansetron 8 mg tablet,disintegrating 8 mg PO Q8H Rx Instructions: 1st dose 1-2 hr before radiation Held benazepril 10 mg tablet 10 mg PO DAILY Hold Instructions: Resume on 11/14/23. hydrochlorothiazide 25 mg tablet 25 mg PO DAILY Hold Instructions: Resume on 11/14/23. [facility] - Disposition Disposition (needs filled in before D/C Order can be placed): Home Health Service Charges/Coding Visit Charges Inpatient E&M: 92036 Disch Hosp >30min
--- NOTE | 2023-10-28 12:08 | CASEMGMT ---
Addendum entered by Joel Waddell 11/03/23 09:51: 10/28/23 @ 1218: late entry. Per [facility], they do not have a phone number to provide to the patient and if they need to contact someone re: home health care they should contact their primary care provider through the [facility] for assistance. This info was added to pt's discharge plan and pt and made aware. Original Note: 0955: JAZMIN MANE to room. Pt resting in bed, @ bedside. They are aware pt is discharging home today. states [facility] called her this morning and they are continuing to follow for [facility] set-up. Pt and both deny having any other discharge needs or concerns and thanked JAZMIN MANE for all of the help received. 1210: Discharge order is in. Discharge instructions and summary faxed to [facility] @ [phone]. Call placed to [facility] [employer], Deloris @ [phone]. She is aware pt is discharging home today and that dc instruc/summary have both been faxed to [facility]. She voices appreciation. She states she will reach out to pt/ today. She anticipates [facility] will either be tomorrow or Tuesday. Talia THAKKAR RN, CM
[2023-10-28 12:18] VITALS: BP 153/83; PULSE 81; RESP 15; TEMP 36.6; O2SAT 98
--- NOTE | 2023-10-28 12:34 | PHA.DC.MR.R ---
[facility] [place] [facility]con[facility] has performed discharge medication reconciliation for this patient. The patient's discharge medication list was reviewed for discrepancies and discrepancies were resolved. Medications at Discharge Home Medications acyclovir 400 mg tablet 400 mg PO BID 06/17/23 atorvastatin 40 mg tablet 40 mg PO QHS 06/17/23 azacitidine 100 mg solution for injection 125 mg subcut DAILY 06/17/23 benazepril 10 mg tablet 10 mg PO DAILY 06/17/23 cholecalciferol (vitamin D3) 25 mcg (1,000 unit) capsule 25 mcg PO DAILY 06/17/23 ciprofloxacin HCl 500 mg tablet (Cipro) 500 mg PO BID 06/17/23 cyanocobalamin (vitamin B-12) 1,000 mcg capsule 1,000 mcg PO DAILY 06/17/23 dexamethasone 4 mg tablet 8 mg PO DAILY 06/17/23 fluconazole 200 mg tablet 400 mg PO DAILY 06/17/23 fluticasone propionate 50 mcg/actuation nasal spray,suspension (Aller-Moose) 2 spray intranasal DAILY 06/17/23 hydrochlorothiazide 25 mg tablet 25 mg PO DAILY 06/17/23 hydroxyzine HCl 10 mg tablet 20 mg PO Q6H PRN itching 06/17/23 ketoconazole 2 % shampoo 1 applic topical Q14D 06/17/23 metoclopramide HCl 10 mg tablet (Reglan) 10 mg PO TID 06/17/23 terazosin 5 mg capsule 5 mg PO QHS 06/17/23 thiamine HCl (vitamin B1) 100 mg tablet 100 mg PO DAILY 06/17/23 vitamin E 670 mg (1,000 unit) capsule 670 mg PO DAILY 06/17/23 vitamins A,C,P-omwk-ocrhhq 2,148 mcg-113 mg-45 mg-17.4 mg tablet (Eye Multivitamin) 1 tab PO BID 06/17/23 albuterol sulfate 90 mcg/actuation aerosol inhaler 2 inh inhalation Q4H PRN shortness of breath or wheezing 10/25/23 clobetasol 0.05 % topical cream 1 applic topical BID 10/25/23 desonide 0.05 % topical cream 1 applic topical Q12H 10/25/23 diclofenac sodium 75 mg tablet,delayed release 75 mg PO BID 10/25/23 ondansetron 8 mg disintegrating tablet 8 mg PO Q8H 10/25/23 sennosides 8.6 mg-docusate sodium 50 mg tablet (Colace 2-In-1) 1 tab-cap PO BID 10/25/23
== END 2023-10-28 13:51 | disposition home health service (06) | DRG 812 ==
LOC: ED 11:23 → MS3 14:49
PROVIDERS: Internal Medicine; Admitting Provider Family Medicine; Emergency Provider Emergency Medicine; Visit Provider Hospitalist
DX: D46.9 Myelodysplastic syndrome, unspecified (principal); E87.1 Hypo-osmolality and hyponatremia; N17.9 Acute kidney failure, unspecified; I10 Essential (primary) hypertension; E66.9 Obesity, unspecified; E86.0 Dehydration; E78.5 Hyperlipidemia, unspecified; Z11.52 Encounter for screening for COVID-19; T45.1X5A Adverse effect of antineoplastic and immunosuppressive drugs, initial encounter; I49.3 Ventricular premature depolarization; Z68.30 Body mass index [BMI] 30.0-30.9, adult; Z79.52 Long term (current) use of systemic steroids; Z79.899 Other long term (current) drug therapy; Z87.891 Personal history of nicotine dependence
CPT/HCPCS: 36415; 71045; 73502; 80048; 80053; 81001; 83605; 83690; 84484; 85025; 85027; 86850; 86900; 86901; 86920; 86922; 87040; 87086; 87088; 87631; 93005; 97116; 97162; 97166; 97535; 99284; J7030; J7040; P9016; A4216